=== PATIENT | male | born 2000 | race Caucasian/White ===

== ENCOUNTER 2019-01-02 02:10 | Emergency (ER) | payer OTHER ==
--- NOTE | 2019-01-02 02:17 | PDOC ---
History of Present Illness - General Stated Complaint: PAIN,LT TOE Time Seen by Provider: 01/02/19 02:17 History Source: Patient Exam Limitations: No Limitations - History of Present Illness Initial Comments: 18 year old male with no PMH presented to ED for left great toe pain x3 weeks, worsening today after trauma to left great toe. Pt was seen at Urgent care x2.5 weeks ago, was given Keflex for presumed infection to left great toe. Pt reported noncompliance with medication completion, not finishing all doses. Pt denied nausea/vomiting/fever/abdominal pain. Pt reported he is ambulatory. Past History - Past Medical History Allergies/Adverse Reactions: Allergies Allergy/AdvReac Type Severity Reaction Status Date / Time No Known Allergies Allergy Verified 04/20/16 07:27 Home Medications: Ambulatory Orders Sulfamethoxazole/Trimethoprim [Bactrim Ds -] 1 tab PO BID #14 tablet 01/02/19 - Surgical History Neurologic Surgery: Yes (c spine ( ? chiari )) - Immunization History Immunization Up to Date: Yes - Suicide/Smoking/Psychosocial Hx Smoking Status: No Smoking History: Never smoked Have you smoked in the past 12 months: No Number of Cigarettes Smoked Daily: 0 Hx Alcohol Use: No Drug/Substance Use Hx: No Substance Use Type: None Review of Systems - Review of Systems Able to Perform ROS?: Yes Comments:: General: denied fever, chills, generalized weakness. HEENT: denied sore throat, rhinorrhea, ear pain. Cardiovascular: denied chest pain, palpitations, syncope, diaphoresis. Respiratory: denied shortness of breath, cough, sputum production, hemoptysis. Gastrointestinal: denied abdominal pain, nausea, vomiting, diarrhea, constipation, blood in stool. Genitourinary: denied dysuria, increased urinary frequency, hematuria, urinary incontinence, flank pain. Back: denied back pain. Musculoskeletal: admitted to toe pain. Neurological: denied headache, dizziness, numbness, tingling, weakness. Integumentary: denied rash, laceration, abrasion. Hematologic/Lymphatic: denied bruising or bleeding. *Physical Exam - Physical Exam Comments: Constitutional: Well-nourished, Well-developed, appearing stated age. HEENT: head is normocephalic, atraumatic. EOMI. PERRLA. Neck: supple. Full ROM. Cardiovascular: regular heart rhythm. no murmurs. no pericardial friction rub. Respiratory: clear to auscultation bilaterally. no crackles, rhonchi or wheezing. no stridor. Gastrointestinal: soft, nontender. normal bowel sounds. no rebound, guarding, masses. Extremities: left first toe tender to the lateral distal phalnx, with mild erythema, no purulence, no ingrown toe nail. peripheral pulses intact. no lower extremity edema. Neurological: CN 2-12 grossly intact. moves all four extremities. Psych: awake, alert, oriented x3. follows commands. answers questions appropriately. Medical Decision Making - Medical Decision Making 18 year old male with no PMH presented to ED for left toe pain x3 weeks, worsening toe after having his toe stepped on during Soccer. Initial Vital Signs Temp Pulse Resp BP Pulse Ox 97.9 F 89 16 138/76 100 01/02/19 03:00 01/02/19 03:00 01/02/19 03:00 01/02/19 03:00 01/02/19 03:00 Afebrile. No tachycardia. No tachypnea. Mild hypertension. No hypoxia on room air. Labs ordered: none Imaging ordered: Left foot XR Medications ordered: Ibuprofen 600 mg PO once, Bactrim 01/02/19 03:16 XR my/Dr. Benjamin/Dr. Augustin's read: no acute fracture/dislocation. -Pending official report Pt informed of results and need for F/U with Podiatry. Discharge prescriptions: Bactrim 01/03/19 03:24 Follow up: Official Foot XR report: Name: [facility] Phys: Meera Guallpa RESIDENT : 2000 Age: 18 Sex: M [facility] Acct: [id number] Loc: [address] Exam Date: 01/02/19 Status: [place] [address] Unit Number: [id number] ACCESSION # : [id number] EXAM#: TYPE/EXAM: RESULT: RAD/FOOT-LEFT Left foot: Great toe pain. Trauma. 3 views of the left foot reveal no sign of a gross fracture or subluxation and no sign of blastic or lytic changes. Swelling, foreign body or soft tissue air is not seen. If symptoms persist, further imaging may be of help. Impression: No acute left foot pathology. Reported By: Misael Lawrence MD 01/02/19 0725 *DC/Admit/Observation/Transfer Diagnosis at time of Disposition: Toe pain, Cellulitis - Discharge Dispostion Disposition: HOME Condition at time of disposition: Stable Decision to Admit order: No - Prescriptions Prescriptions: Sulfamethoxazole/Trimethoprim [Bactrim Ds -] 1 tab PO BID #14 tablet - Referrals Referrals: Shani Chu MD [Primary Care Provider] - Kelvin Marvin MD [Staff Physician] - - Patient Instructions Additional Instructions: Your X-ray showed no broken bones. I have sent a prescription to your pharmacy for an antibiotic to treat the infection of your toe. Pick it up and take as advised on label. Do not stop before you have finished all doses. Follow up with a podiatry within 5 days. I have provided you with a referral. Follow up with your primary care doctor within 3 days. Your care is not complete until you follow up. Take ibuprofen over the counter for pain. Take as advised on label. Take with food. Return to the Emergency Department for increasing pain despite ibuprofen use, fever, chills, vomiting, inability to walk, increasing redness to skin or any other new, worsening or concerning symptoms. Do not play sports or do any heavy physical activity for 1-2 weeks, or until symptoms subside. - Post Discharge Activity Forms/Work/School Notes: Back to Work, Back to School
[2019-01-02] MEDS ORDERED: IBUPROFEN 600 MG TABLET (FP) PO ONE ×2 (02:25→02:55)
[2019-01-02] MEDS ORDERED: SULFAMETHOXAZOLE/TRIMETHOPRIM 800MG/160MG D.S. TABLET PO ONE (02:34)
[2019-01-02] MEDS ORDERED: SULFAMETHOXAZOLE/TRIMETHOPRIM 800MG/160MG D.S. TABLET ONE (02:55)
[2019-01-02 03:06] VITALS: BP 138/76; PULSE 89; TEMP 97.9; BMI 27.8
== END 2019-01-02 03:31 | disposition home or self-care (01) ==
LOC: JER 02:10
DX: L03.032 Cellulitis of left toe (principal); S99.822D Other specified injuries of left foot, subsequent encounter; W50.0XXD Accidental hit or strike by another person, subsequent encounter
CPT/HCPCS: 73630-TC-LT; 99282-25